=== PATIENT | male | born 1960 | race American Indian/Alaskan Native ===

== ENCOUNTER 2019-06-16 12:55 | Emergency (ER) | payer MEDICARE ==
--- NOTE | 2019-06-16 13:13 | Emergency Department Report ---
Blank Doc - Documentation Documentation: 58-year-old male that presents with left ankle pain after twisting it. This initial assessment/diagnostic orders/clinical plan/treatment(s) is/are subject to change based on patient's health status, clinical progression and re- assessment by fellow clinical providers in the ED. Further treatment and workup at subsequent clinical providers discretion. Patient/guardians urged not to elope from the ED as their condition may be serious if not clinically assessed and managed. Initial orders include: 1- Patient sent to [facility] for further evaluation and treatment 2- xrays
[2019-06-16 13:15] VITALS: BP 152/101
--- NOTE | 2019-06-16 13:48 | XRay Report ---
XR ankle 3+V LT INDICATION / CLINICAL INFORMATION: Left ankle pain after injury. COMPARISON: None available. FINDINGS: BONES/JOINT(S): No acute fracture or subluxation. No significant degenerative changes. SOFT TISSUES: There is soft tissue swelling in the lateral ankle. ADDITIONAL FINDINGS: None. Signer Name: Ysoeph Ryan MD Signed: 06/16/2019 1:43 PM Workstation Name: [email or web address]
[2019-06-16] MEDS ORDERED: KETOROLAC 30 MG/1 ML INJ IM ONE (16:11)
--- NOTE | 2019-06-16 16:11 | Emergency Department Report ---
ED Lower Extremity HPI - General Chief Complaint: Extremity Injury, Lower Stated Complaint: (L) ANKLE PAIN Time Seen by Provider: 06/16/19 13:12 Source: patient Mode of arrival: Wheelchair Limitations: No Limitations - History of Present Illness Initial Comments: This is a 58-year-old -Filipino male who presents to the emergency room with left ankle swelling and pain to days. Patient reports pain predominantly on the lateral side of left ankle and worse with movement and weight. Patient states he is tripped over a tree. While entering his home. He denies hitting his head, loss of consciousness, numbness or tingling, weakness, paresthesias, or bruising. MD Complaint: ankle injury (left) Onset/Timin -: days(s) Injury: Ankle: Left Type of Injury: unknown Place: street/outdoors Severity: moderate Severity scale (0 -10): 8 Improves With: immobilization Worsens With: weight bearing, movement Context: fall Associated Symptoms: snap/pop sensation, swelling, able to partially bear weight, ambulatory. denies: numbness, tingling Treatments Prior to Arrival: NSAIDS - Related Data Home Medications Medication Instructions Recorded Confirmed Last Taken Carvedilol [Coreg] 50 mg PO BID 11/16/14 11/16/14 Unknown Ferrous Sulfate [Feosol] 325 mg PO DAILY 11/16/14 11/16/14 Unknown Multi Vitamin Daily PO DAILY 11/16/14 11/16/14 Unknown Sildenafil Citrate [Viagra] 100 mg PO QDAY PRN 11/16/14 11/16/14 Unknown amLODIPine [Norvasc] 10 mg PO DAILY 11/16/14 11/16/14 Unknown Previous Rx's Medication Instructions Recorded Last Taken Type Carvedilol [Coreg] 25 mg PO BID #60 tablet 11/16/14 Unknown Rx HYDROcodone/APAP 10-325 [[place] 1 each PO Q6HR PRN #20 tablet 11/16/14 Unknown Rx 10/325] amLODIPine 10 mg PO QHS #30 tab 11/16/14 Unknown Rx Ibuprofen [Motrin 800 MG tab] 800 mg PO Q8H #20 tablet 06/16/19 Unknown Rx Allergies Allergy/AdvReac Type Severity Reaction Status Date / Time No Known Allergies Allergy Unverified 11/16/14 15:23 ED Review of Systems ROS: Stated complaint: (L) ANKLE PAIN Other details as noted in HPI Constitutional: denies: chills, fever Respiratory: denies: cough, shortness of breath, wheezing Cardiovascular: denies: chest pain, palpitations Gastrointestinal: denies: abdominal pain, nausea, diarrhea Musculoskeletal: arthralgia (left ankle pain). denies: back pain, joint swelling Skin: denies: rash, lesions Neurological: denies: headache, weakness, paresthesias Psychiatric: denies: anxiety, depression ED Past Medical Hx - Past Medical History Previous Medical History?: Yes Hx Hypertension: Yes - Surgical History Past Surgical History?: Yes Additional Surgical History: Abdominal mesh - Social History Smoking Status: Current Every Day Smoker Substance Use Type: None - Medications Home Medications: Home Medications Medication Instructions Recorded Confirmed Last Taken Type Carvedilol [Coreg] 25 mg PO BID #60 tablet 11/16/14 Unknown Rx Carvedilol [Coreg] 50 mg PO BID 11/16/14 11/16/14 Unknown History Ferrous Sulfate [Feosol] 325 mg PO DAILY 11/16/14 11/16/14 Unknown History HYDROcodone/APAP 10-325 [[place] 1 each PO Q6HR PRN #20 tablet 11/16/14 Unknown Rx 10/325] Multi Vitamin Daily PO DAILY 11/16/14 11/16/14 Unknown History Sildenafil Citrate [Viagra] 100 mg PO QDAY PRN 11/16/14 11/16/14 Unknown History amLODIPine 10 mg PO QHS #30 tab 11/16/14 Unknown Rx amLODIPine [Norvasc] 10 mg PO DAILY 11/16/14 11/16/14 Unknown History Ibuprofen [Motrin 800 MG tab] 800 mg PO Q8H #20 tablet 06/16/19 Unknown Rx ED Physical Exam - General Limitations: No Limitations General appearance: alert, in no apparent distress - Respiratory Respiratory exam: Present: normal lung sounds bilaterally. Absent: respiratory distress - Cardiovascular Cardiovascular Exam: Present: regular rate, normal rhythm. Absent: systolic murmur, diastolic murmur, rubs, gallop - GI/Abdominal GI/Abdominal exam: Present: soft, normal bowel sounds - Expanded Lower Extremity Exam Left Knee exam: Present: normal inspection, full ROM Lower Leg exam: Present: normal inspection, full ROM Ankle exam: Present: full ROM (pain with limited ROM), tenderness (lateral malleolus tenderness and swelling), swelling. Absent: abrasion, laceration, ecchymosis, deformity, crepidus, dislocation, erythema, anterior draw sign Foot/Toe exam: Present: normal inspection, full ROM Neuro vascular tendon exam: Present: no vascular compromise Gait: Positive: observed and limited by pain - Neurological Exam Neurological exam: Present: alert, oriented X3 - Psychiatric Psychiatric exam: Present: normal affect, normal mood - Skin Skin exam: Present: warm, dry, intact, normal color. Absent: rash ED Course Vital Signs 06/16/19 13:13 Temperature 97.9 F Pulse Rate 73 Respiratory 16 Rate Blood Pressure 152/101 O2 Sat by Pulse 100 Oximetry ED Lower Extremity MDM - Radiology Data Radiology results: report reviewed XR ankle 3+V LT INDICATION / CLINICAL INFORMATION: Left ankle pain after injury. COMPARISON: None available. FINDINGS: BONES/JOINT(S): No acute fracture or subluxation. No significant degenerative changes. SOFT TISSUES: There is soft tissue swelling in the lateral ankle. ADDITIONAL FINDINGS: None. - Medical Decision Making Patient was examined by me. Patient is nontoxic appearing and stable. Vitals are stable. Obtained x-ray of left ankle with no acute radiographic findings. Given analgesics while in the ER. Physical findings susceptible of left ankle sprain. Kenji wrap applied to left ankle. Patient given rates therapy instructions. Patient informed of results. Start ibuprofen for pain Follow up with PCP or return to the ER with worsening symptoms. Patient discharged home in stable condition. Critical care attestation.: If time is entered above; I have spent that time in minutes in the direct care of this critically ill patient, excluding procedure time. ED Disposition Clinical Impression: Left ankle sprain Qualifiers: Encounter type: initial encounter Involved ligament of ankle: anterior talofibular ligament Qualified Code(s): S93.492A - Sprain of other ligament of left ankle, initial encounter Ankle pain, left Qualifiers: Chronicity: acute Qualified Code(s): M25.572 - Pain in left ankle and joints of left foot Disposition: TO HOME OR SELFCARE Is pt being admited?: No Condition: Stable Instructions: Arthralgia (ED), Ankle Sprain (ED) Additional Instructions: Rest Use ice or heat on affected area for 20 minutes and off for 2 hours. Take pain medication as needed for pain. Elevate leg while sitting to decrease swelling. Follow up with Primary Care Provider in 2-3 days. Prescriptions: Ibuprofen [Motrin 800 MG tab] 800 mg PO Q8H #20 tablet Referrals: [facility] [Outside] - 3-5 Days [facility], [facility] [Provider Group] - 3-5 Days [facility] [Provider Group] - 3-5 Days GENARO VALENTIN MD [Staff Physician] - 3-5 Days Time of Disposition: 16:11
== END 2019-06-16 16:35 | disposition home or self-care (01) ==
LOC: ED 12:55
DX: S93.492A Sprain of other ligament of left ankle, initial encounter (principal); I10 Essential (primary) hypertension; F17.200 Nicotine dependence, unspecified, uncomplicated; Z98.890 Other specified postprocedural states; W01.0XXA Fall on same level from slipping, tripping and stumbling without subsequent striking against object, initial encounter; Y93.89 Activity, other specified; Y92.410 Unspecified street and highway as the place of occurrence of the external cause; Y99.8 Other external cause status
CPT/HCPCS: 73610; 96372; 99283; J1885

== ENCOUNTER 2019-11-13 12:12 | Emergency (ER) | payer MEDICARE ==
--- NOTE | 2019-11-13 12:40 | Emergency Department Report ---
Blank Doc - Documentation Documentation: 59-year-old male that presents with uncontrolled HTN and was sent by PCP. This initial assessment/diagnostic orders/clinical plan/treatment(s) is/are subject to change based on patient's health status, clinical progression and re- assessment by fellow clinical providers in the ED. Further treatment and workup at subsequent clinical providers discretion. Patient/guardians urged not to elope from the ED as their condition may be serious if not clinically assessed and managed. Initial orders include: 1- Patient sent to [facility] for further evaluation and treatment 2- labs
[2019-11-13 13:31] LABS: Basophils # (Auto) 0.1 K/mm3 (0.0-0.1); Basophils % (Auto) 1.3 % (0.0-1.8); Eosinophils # (Auto) 0.1 K/mm3 (0.0-0.4); Eosinophils % (Auto) 1.9 % (0.0-4.3); Hematocrit 41.2 % (35.5-45.6); Hemoglobin 13.7 gm/dl (11.8-15.2); Lymphocytes # (Auto) 1.5 K/mm3 (1.2-5.4); Lymphocytes % (Auto) 29.4 % (13.4-35.0); Mean Corpuscular HGB Conc 33 % (32-34); Mean Corpuscular Volume 111 fl (84-94); Monocytes # (Auto) 0.4 K/mm3 (0.0-0.8); Monocytes % (Auto) 7.8 % (0.0-7.3); Platelet Count 213 K/mm3 (140-440); Red Blood Count 3.73 M/mm3 (3.65-5.03); Red Cell Distribution Width 15.2 % (13.2-15.2)
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
[2019-11-13 13:49] LABS: Alanine Aminotransferase 11 units/L (7-56); Albumin 4.2 g/dL (3.9-5); BUN/Creatinine Ratio 12; Blood Urea Nitrogen 13 mg/dL (9-20); Hemolysis Index 18
[2019-11-13 14:04] VITALS: BP 149/95
== END 2019-11-13 14:04 | disposition home or self-care (01) ==
LOC: ED 12:12
DX: I10 Essential (primary) hypertension (principal); F17.200 Nicotine dependence, unspecified, uncomplicated; Z91.19 Patient's noncompliance with other medical treatment and regimen
CPT/HCPCS: 36415; 80053; 85025; 99283